=== PATIENT | male | born 1970 | race African-American/Black ===

== ENCOUNTER 2016-12-27 14:44 | Emergency (ER) | payer MEDICARE, MEDICAID ==
[~2016-12-27] VITALS: Ht 160 cm; Wt 100.1 kg
[2016-12-27 14:49] VITALS: BP 150/100; PULSE 71; RESP 16; TEMP 97.9; O2SAT 99
[2016-12-27] MEDS ORDERED: AMLO10TA2 PO (15:23)
[2016-12-27] MEDS ORDERED: LOSA100T2 PO (15:23)
[2016-12-27] MEDS ORDERED: CLINDAMYCIN 150 MG CAP PO ONE (15:30)
[2016-12-27] MEDS ORDERED: CLIN1CAP6 PO (15:30)
[2016-12-27] MEDS ORDERED: traMADol HCL 50 MG TAB PO ONE (15:30)
[2016-12-27] MEDS ORDERED: TRAM50TA PO ×2 (15:30→15:32)
--- NOTE | 2016-12-27 15:38 | PD ---
HPI Chief Complaint: Oral / Dental Pain or Problem Time Seen by Provider: 15:32 Travel History International Travel<30 days: No Contact w/Intl Traveler<30days: No Traveled to known affect area: No History of Present Illness HPI 36-year-old male presents to the emergency room for evaluation of right lower dental pain for the past 2 days. Patient has had pain in that area for a very long time but reports worsening of symptoms over the past 2 days. Reports associated bleeding from the area 3 days ago. He has been taking extended release, extra strength Tylenol which was helping at first but no longer seems to be helping. He cannot take Motrin because of history of hemophilia and bleeding ulcers. He denies purulent drainage, fever, chills, nausea, and vomiting. He has an appointment with his dentist in 7 days. PFSH Past Medical History Cardiovascular Problems: Yes (HYPERTENSION) Diminished Hearing: No Hypertension: Yes Medical other: Yes (hemophilla) Tetanus Vaccination: > 5 Years Influenza Vaccination: No Past Surgical History Joint Replacement: Yes (bilat knee) Social History Alcohol Use: Yes (occassional) Tobacco Use: No Substance Use: No Allergies-Medications (Allergen,Severity, Reaction): Coded Allergies: Erythromycins (Verified Allergy, Intermediate, Hives, 12/27/16) ANY OF THE "MYCINS" Penicillin (Verified Allergy, Intermediate, Shortness of Breath, 12/27/16) ANY OF THE "CILLINS" Reported Meds & Prescriptions Reported Meds & Active Scripts Active Clindamycin (Clindamycin HCl) 300 Mg Cap 300 Mg PO Q6H 7 Days Tramadol (Tramadol HCl) 50 Mg Tab 50 Mg PO Q6H PRN Reported Amlodipine (Amlodipine Besylate) 10 Mg Tab 10 Mg PO HS Losartan-Hydrochlorothiazide 100-25 Mg Tab 1 Tab PO DAILY Review of Systems Except as stated in HPI: all other systems reviewed are Neg Physical Exam Narrative GENERAL: Well-nourished, well-developed male in no acute distress. Afebrile. Ambulatory. SKIN: Focused skin assessment warm/dry. HEAD: Normocephalic. EYES: No scleral icterus. No injection or drainage. DENTAL: Moderate decay throughout. No malocclusion. No submental, submandibular, or buccal induration or edema. No obvious abscess. No drainage. No significant erythema. Tooth #31 has exposed root. Mildly tender to palpation. NECK: Supple, trachea midline. No JVD or lymphadenopathy. CARDIOVASCULAR: Regular rate and rhythm without murmurs, gallops, or rubs. RESPIRATORY: Breath sounds equal bilaterally. No accessory muscle use. Data Data Last Documented VS Vital Signs Date Time Temp Pulse Resp B/P Pulse Ox O2 Delivery O2 Flow Rate FiO2 12/27/16 14:49 97.9 71 16 150/100 99 Orders Clindamycin (Cleocin) (12/27/16 15:30) Tramadol (Ultram) (12/27/16 15:30) MDM Medical Decision Making Medical Screen Exam Complete: Yes Emergency Medical Condition: Yes Medical Record Reviewed: Yes Differential Diagnosis Dentalgia, dental decay, dental abscess Narrative Course 46-year-old male presents to the emergency room for evaluation of significant right lower dental pain for the past 2 days. No history of fever. He is afebrile and well-appearing in the emergency room. No edema. No evidence of Jerad's angina. Patient was offered dental block but declined. He will be given tramadol and clindamycin in the emergency room and discharged with prescriptions for the same. Told to follow-up with his dentist as planned or return for worsening symptoms. He understands and agrees to plan. Diagnosis Primary Impression: Dentalgia Referrals: Dentist Patient Instructions: [facility] (ED), General Instructions Additional Instructions: Rest and drink plenty of fluids. [place] your teeth twice daily. Tramadol as directed, as needed for pain. Do not drink alcohol or drive when taking this medication. Clindamycin as directed, until gone. Follow-up with a dentist. Return to the emergency room for worsening symptoms. Med/Other Pt SpecificInfo: Prescription(s) given Scripts Tramadol 50 Mg Tab50 Mg PO Q6H PRN (PAIN) #10 TAB Ref 0 Prov:Rock Geiger MD 12/27/16 Clindamycin 300 Mg [id number] Mg PO Q6H 7 Days Ref 0 Prov:Rock Geiger MD 12/27/16 Disposition: 01 DISCHARGE HOME Condition: Stable Megha Babb Dec 27, 2016 15:38
== END 2016-12-27 16:47 | disposition home or self-care (01) ==
LOC: PHEFT 14:44
DX: K08.89 Other specified disorders of teeth and supporting structures (principal)
CPT/HCPCS: 99284